=== PATIENT | female | born 1990 | race Two or more races ===

== ENCOUNTER 2017-08-18 07:36 | Outpatient (CLI) | payer OTHER ==
[~2017-08-18 07:36] MED LIST: SPRINTEC1 TAB PO
== END 2017-08-18 14:38 | disposition home or self-care (01) ==
LOC: SONOGRAMA 07:36
DX: R10.9 Unspecified abdominal pain (principal)

== ENCOUNTER 2018-03-10 09:44 | Outpatient (CLI) | payer OTHER | END 2018-03-10 09:49 | disposition home or self-care (01) | LOC: LAB 09:44 | DX: N39.0 Urinary tract infection, site not specified (principal); R82.79 Other abnormal findings on microbiological examination of urine ==

== ENCOUNTER 2018-10-28 14:05 | Emergency (ER) | payer OTHER ==
[~2018-10-28] VITALS: Ht 152.4 cm; Wt 47.6 kg
== END 2018-10-28 15:00 | disposition home or self-care (01) ==
LOC: ER 14:05
DX: S61.242A Puncture wound with foreign body of right middle finger without damage to nail, initial encounter (principal); W46.0XXA Contact with hypodermic needle, initial encounter; Y93.89 Activity, other specified; Y92.69 Other specified industrial and construction area as the place of occurrence of the external cause; Y99.8 Other external cause status

== ENCOUNTER 2020-01-30 12:07 | Outpatient (CLI) | payer OTHER | END 2020-01-30 12:19 | disposition home or self-care (01) | LOC: SONOGRAMA 12:07 | PROVIDERS: ATTEND Specialist | DX: N83.01 Follicular cyst of right ovary (principal); R10.12 Left upper quadrant pain ==

== ENCOUNTER → 2020-07-10 | Outpatient (CLI) | payer OTHER | END | disposition home or self-care (01) | LOC: PPH VACUNA 10:52 | DX: Z23 Encounter for immunization (principal) ==

== ENCOUNTER → 2021-05-12 | Outpatient (CLI) | payer OTHER | END | disposition home or self-care (01) | LOC: PPH VACUNA 01:39 | PROVIDERS: ATTEND Emergency Medicine Pediatric Emergency Medicine | DX: Z23 Encounter for immunization (principal) ==

== ENCOUNTER 2021-06-15 08:00 | Outpatient (CLI) | payer OTHER | END 2021-06-15 08:30 | disposition home or self-care (01) | LOC: PPH VACUNA 08:00 | PROVIDERS: ATTEND Emergency Medicine Pediatric Emergency Medicine | DX: Z23 Encounter for immunization (principal) ==

== ENCOUNTER 2022-05-07 08:00 | Outpatient (CLI) | payer OTHER | END 2022-05-07 08:05 | disposition home or self-care (01) | LOC: PPH VACUNA 08:00 | PROVIDERS: ATTEND Emergency Medicine Pediatric Emergency Medicine | DX: Z23 Encounter for immunization (principal) ==

== ENCOUNTER 2022-10-21 10:20 | Outpatient (CLI) | payer OTHER | END 2022-10-21 16:09 | disposition home or self-care (01) | LOC: TOM 10:20 | PROVIDERS: ATTEND Internal Medicine | DX: D35.2 Benign neoplasm of pituitary gland (principal); R10.814 Left lower quadrant abdominal tenderness; R19.04 Left lower quadrant abdominal swelling, mass and lump ==

== ENCOUNTER 2023-05-18 10:26 | Outpatient (CLI) | payer OTHER | END 2023-05-18 10:36 | disposition home or self-care (01) | LOC: PPH VACUNA 10:26 | PROVIDERS: ATTEND Emergency Medicine Pediatric Emergency Medicine | DX: Z23 Encounter for immunization (principal) | CPT/HCPCS: 90686; G0008 ==

== ENCOUNTER 2024-05-03 11:40 | Outpatient (CLI) | payer OTHER | END 2024-05-03 12:00 | disposition home or self-care (01) | LOC: PPH VACUNA 11:40 | PROVIDERS: ATTEND Emergency Medicine Pediatric Emergency Medicine | DX: Z23 Encounter for immunization (principal) ==

== ENCOUNTER 2024-05-22 07:03 | Outpatient (CLI) | payer OTHER | END 2024-05-22 07:10 | disposition home or self-care (01) | LOC: MAMO-SONO 07:03 | PROVIDERS: ATTEND Surgery | DX: N60.11 Diffuse cystic mastopathy of right breast (principal); N60.12 Diffuse cystic mastopathy of left breast ==

== ENCOUNTER → 2024-11-08 | Emergency (ER) | payer OTHER ==
[~2024-11-08] VITALS: Ht 154.9 cm; Wt 51.3 kg
[~2024-11-08] MED LIST changes: +CELEBREX200MG PO; +ELVITEG/COB/EMTRI/TENOFO DISOP 1 UDTAB TABLET PO ONE; +MEDROLPACK PO; +METAXALONE800 MG PO
== END | disposition home or self-care (01) ==
LOC: ER 13:13
DX: T45.8X1A Poisoning by other primarily systemic and hematological agents, accidental (unintentional), initial encounter (principal); Y92.69 Other specified industrial and construction area as the place of occurrence of the external cause; Y64.8 Contaminated medical or biological substance administered by other means; Y82.8 Other medical devices associated with adverse incidents

== ENCOUNTER 2024-11-15 23:24 | Emergency (ER) | payer OTHER ==
[~2024-11-15] VITALS: Ht 154.9 cm; Wt 50.8 kg
[~2024-11-15 23:24] MED LIST changes: -CELEBREX200MG PO; -ELVITEG/COB/EMTRI/TENOFO DISOP 1 UDTAB TABLET PO ONE; -MEDROLPACK PO; -METAXALONE800 MG PO
[2024-11-16] MEDS ORDERED: KETOROLAC TROMETHAMINE 15 MG VIAL IV STA (00:04)
[2024-11-16] MEDS ORDERED: ORPHENADRINE CITRATE 100 MG TABLET PO STA (00:05)
[2024-11-16] MEDS ORDERED: METHYLPREDNISOLONE SOD SUCC 40 MG VIAL IV STA (00:05)
[2024-11-16] MEDS ORDERED: KETOROLAC TROMETHAMINE 30 MG VIAL ONE (00:14)
[2024-11-16] MEDS ORDERED: METHYLPREDNISOLONE SOD SUCC 40 MG VIAL ONE (00:15)
[2024-11-16 00:59] LABS: HEMATOCRIT 36.8 % (36.0-45.00); HEMOGLOBIN 12.5 g/dL (12.0-15.00); MEAN CELL VOLUME 96.4 fL (80.00-100.00); MEAN CORPUSCULAR HEMOGLOBIN 32.8 pg (27.00-32.0); MEAN CORPUSCULAR HGB CONC 34.1 g/dl (32.0-36.0); PLATELET COUNT 372 K/uL (150-450); RED BLOOD COUNT 3.82 M/uL (4.00-6.00); RED CELL DISTRIBUTION WIDTH 11.8 % (11.5-14.5)
[2024-11-16 01:25] LABS: COVID-19 AG NEGATIVE (NEGATIVE)
[2024-11-16 01:27] LABS: INFLUENZA A AG NEGATIVE (NEGATIVE)
[2024-11-16] MEDS ORDERED: CELEBREX200MG PO (01:50)
[2024-11-16] MEDS ORDERED: METAXALONE800 MG PO (01:50)
[2024-11-16] MEDS ORDERED: MEDROLPACK PO (01:50)
== END 2024-11-16 02:17 | disposition home or self-care (01) ==
LOC: ER 23:25
PROVIDERS: Emergency Medicine
DX: M43.6 Torticollis (principal); R53.81 Other malaise; Z20.822 Contact with and (suspected) exposure to COVID-19

== ENCOUNTER 2025-05-15 13:00 | Outpatient (CLI) | payer OTHER ==
[~2025-05-15 13:00] MED LIST changes: +CELEBREX200MG PO; +MEDROLPACK PO; +METAXALONE800 MG PO
== END 2025-05-15 13:10 | disposition home or self-care (01) ==
LOC: PPH VACUNA 13:00
PROVIDERS: ATTEND Emergency Medicine Pediatric Emergency Medicine
DX: Z23 Encounter for immunization (principal)